=== PATIENT | male | born 1985 | race Caucasian/White ===

== ENCOUNTER → 2021-05-29 10:33 | Outpatient (BNVA) | payer BC, SELFPAY | PROVIDERS: Visit Provider Nurse Practitioner Family | DX: R10.9 Unspecified abdominal pain (principal) | CPT/HCPCS: 81000 ==

== ENCOUNTER 2021-05-31 10:43 | Emergency (ER) | payer BC, SELFPAY ==
[2021-05-31 11:23] VITALS: BP 135/90; PULSE 88; RESP 16; TEMP 36.8; O2SAT 98; BMI 24.3
--- NOTE | 2021-05-31 13:20 | W.ED.BACK ---
Documented by User: DENISE Sesay 05/31/21 15:17 HPI - Back Pain/Injury General: Chief Complaint: Back Pain/Injury Stated Complaint: sent by pcp: poss kidney stones/needs further eval Time Seen by Provider: 05/31/21 13:01 Source: patient Mode of arrival: ambulatory Limitations: no limitations History of Present Illness: HPI Narrative: Patient is a nice 36-year-old male who presents to ED today with a complaint of right flank pain. Patient states he was seen at a clinic 2 days ago and was told it could be a kidney stone. States he woke up around 0530am that day with fairly acute onset pain. Patient states he was found to have hematuria on that visit. Patient states over the past 2 days pain has not been improving. He has not had any episodes of vomiting. He does not describe any changes to bowel habits. He has noticed darker than normal urine but does not complain of dysuria, frequency, or urgency. He has no history of kidney stones. No injury or trauma to his back. No radicular symptoms. MD elicited complaint: back pain Onset (ago): day(s) Timing: constant Similar Symptoms Previously: No Quality: sharp Location: right flank Radiation: abdomen Exacerbating factors: none Relieving factors: none Associated symptoms: Reports abdominal pain; Deny chills, change in bowel habits, dysuria, fatigue, fever(s), urinary urgency or vomiting Work related injury: No Review of Systems Const: Denies: fever(s), chills, body aches, fatigue or malaise Card: Denies: chest pain Resp: Denies: dyspnea GI: Reports: abdominal pain; Denies: vomiting, diarrhea, change in bowel habits or change in stool character : Reports: flank pain; Denies: dysuria, urinary frequency, urinary urgency, urinary hesitancy, urinary dribbling, testicular pain or scrotal swelling Musc: Reports: back pain Skin/Breast: Denies: rash PFSH ED PFSH: Social History (Updated 05/29/21 @ 10:32 by Marcy John LPN) Smoking and tobacco status: current every day smoker (0.5 ppd) cigarettes Packs smoked per day: 0.5 Alcohol intake: current Alcohol intake frequency: holidays/special occasions only Physical Exam Const: COMMON NORMALS: average body habitus, patient oriented x3, no limitations, healthy appearing, alert and well nourished GENERAL APPEARANCE: cooperative and in distress (appears mildly uncomfortable ) Resp: COMMON NORMALS: normal respiratory effort and clear to auscultation bilaterally AUSCULTATION: clear to auscultation bilaterally Cardio: COMMON NORMALS: regular rate and regular rhythm RATE: regular rate RHYTHM: regular rhythm GI: COMMON NORMALS: Normal to inspection, nondistended, normoactive bowel sounds present, Soft to palpation, No hepatosplenomegaly present and no masses INSPECTION: Yes normal to inspection PALPATION: Yes Soft to palpation, Yes Tenderness to palpation present (GI) Details: RLQ and RUQ and Yes No hepatosplenomegaly present : BLADDER/KIDNEY EXAM: Yes CVA tenderness on the right Back/Pelvis: GENERAL BACK: Yes CVA tenderness THORACIC SPINE/UPPER BACK: Yes normal to inspection, Yes thoracic ROM normal and No thoracic spinal tenderness LUMBAR SPINE/LOWER BACK: Yes normal to inspection, Yes lumbar ROM normal and No lumbar spinal tenderness Extremity: COMMON NORMALS: normal to inspection, no calf tenderness and no pedal edema Neuro: COMMON NORMALS: patient oriented x3 SENSORIUM/ORIENTATION: Yes alert Skin: COMMON NORMALS: no rashes or lesions noted GENERAL SKIN EXAM: no rashes or lesions noted Course Vital Signs: Vital signs: Vital Signs Temperature 98.2 F 05/31/21 11:23 Pulse Rate 74 05/31/21 15:43 Respiratory Rate 18 05/31/21 15:43 Blood Pressure 131/92 05/31/21 15:43 Pulse Oximetry 98 05/31/21 11:23 MDM - Back Pain/Injury MDM Narrative: Medical decision making narrative: Patient's vital signs are stable. He has a mild white count of 14.7 but UA does not appear infected. CT scan shows a 6 mm calcification in his mid right ureter. When I measured stone it was roughly 3 to 4 mm. Patient's pain is controllable here. He feels stable going home. Will discharge with urine strainer and pain/nausea meds and Flomax and have case management set him up with Dr. Chaidez. Strict return to ED precautions given. Lab Data: Labs: Lab Results 05/31/21 05/31/21 05/31/21 13:51 13:51 14:41 WBC 14.7 10^3/uL H 10 ^3/uL (4.0-10.0) RBC 5.08 10^6/uL 10^6 /uL (4.1-5.3) Hgb 15.1 g/dL g/dL (11.7-16.6) Hct 43.2 % % (42.0-52.0) MCV 85.0 fl fl (80-94) MCH 29.7 pg pg (28.0-34.0) MCHC 35.0 g/dL g/dL (30.0-36.0) RDW 12.6 % % (12.1-15.1) Plt Count 313 10^3/cmm 10^3 /cmm (130-400) MPV 9.1 fL fL (7.4-10.4) Neut % (Auto) 71.3 % % Lymph % (Auto) 16.7 % % [place] % (Auto) 8.3 % % Eos % (Auto) 3.1 % % Baso % (Auto) 0.3 % % Neut # (Auto) 10.46 10^3/uL H 1 0^3/uL (1.8-7.7) Lymph # (Auto) 2.5 10^3/uL 10^3/ uL (0.8-4.8) [place] # (Auto) 1.2 10^3/uL H 10^ 3/uL (0.2-0.9) Eos # (Auto) 0.5 10^3/uL 10^3/ uL (0.0-0.8) Baso # (Auto) 0.1 10^3/uL 10^3/ uL (0.0-0.1) Nucleated RBC % (a uto) 0 % % Nucleated RBCs # 0.0 /100WBC /100W BC Sodium 136 mmol/L mmol/L (136-145) Potassium 4.4 mmol/L mmol/L (3.5-5.1) Chloride 100 mmol/L mmol/L (98-107) Carbon Dioxide 26 mmol/L mmol/L (22-29) Anion Gap 14.4 (5-19) BUN 18 mg/dL mg/dL (6-20) Creatinine 1.1 mg/dL mg/dL (0.7-1.2) GFR Calculation 74.9 mL/min L mL/ min (90-130) Glucose 88 mg/dL mg/dL (65-115) Calculated Osmolal ity 283 mOsm/kg L mOs m/kg (285-295) Calcium 9.1 mg/dL mg/dL (8.5-10.5) Total Bilirubin 0.2 mg/dL mg/dL (0.15-1.2) AST 22 U/L U/L (0-40) ALT 27 U/L U/L (0-41) Alkaline Phosphata se 111 IU/L IU/L (40-130) Total Protein 7.3 g/dL g/dL (6.6-8.7) Albumin 4.1 g/dL g/dL (3.5-5.2) Globulin 3.2 g/dL g/dL (1.3-4.6) Urine Color Yellow (Yellow) Urine Appearance Clear (CLEAR) Urine pH 5 (5-7) Ur Specific Gravit y 1.020 (1.005-1.030) Urine Protein Neg (Negative) Urine Glucose (UA) Norm (Normal) Urine Ketones Negative (Negative) Urine Blood Neg (Negative) Urine Nitrate Negative (Negative) Urine Bilirubin Neg (Negative) Urine Urobilinogen Norm mg/dL mg/dL (Negative) Ur Leukocyte Sade ase Negative (Negative) Imaging Data^: CT renal: Radiologist's impression: [address] [id number] Scan ReportSigned Patient: Miguel A Gonzalez #: [id number]: 1985Acct#:[id number]/Sex: 36 / MADM Date: 05/31/21Loc: [facility]/Bed:Attending Dr: Ordering Provider/Ordering MD: Naye Ellison Date of Service: 05/31/21 Procedure(s): CT kidney stone [id number] Accession Number(s): [id number] Report Number: [id number] WS: [id number] CT ABDOMEN AND PELVIS NONCONTRAST HISTORY: R flank pain, hematuria TECHNIQUE: Imaging performed through the abdomen and pelvis. Coronal and sagittal reformats are submitted. All CT scans at [facility] use at least one of these dose optimization techniques: automated exposure control; mA and/or kV adjustment per patient size (includes targeted exams where dose is matched to clinical indication); or iterative reconstruction. DLP: 1252.54 mGy.cm COMPARISON: None available. Lower thorax: Lung bases are clear. Normal heart. Small hiatal hernia. Liver: Normal size liver. No mass or bile duct dilatation. Gallbladder: Normal gallbladder. Pancreas: Normal size and attenuation. Normal pancreatic duct. No pancreatitis or mass. Spleen: Normal. Adrenal glands: Normal. No mass. Right kidney: Enlarged RIGHT kidney with mild perinephric stranding. Moderate hydronephrosis and hydroureter secondary to a 6 mm calcification in the mid ureter. Distal ureter is normal. No additional calcifications RIGHT kidney. Left kidney: Normal size kidney with no mass or hydronephrosis. Aorta: Mild atherosclerosis abdominal aorta with no aneurysm. No free fluid, intraperitoneal air or significant lymphadenopathy. GI tract: Normal appendix. No GI tract obstruction or diverticulosis. Abdominal wall: Negative. No hernia. Pelvis: Normal. Osseous structures: Unremarkable. CT/CT kidney stone [id number] IMPRESSION: 1. Mild RIGHT perinephric stranding and hydronephrosis secondary to a 6 mm calcification in the mid RIGHT ureter. 2. Normal appendix. 3. Small hiatal hernia. Dictated By:Anitra Scruggs DOSigned By:Anitra Scruggs DOSigned Date/Time:05/31/211425DD/ 23 Discharge Plan Discharge Patient Disposition: Home Clinical Impression: Calculus of right ureter Condition: Stable Prescriptions: New hydrocodone-acetaminophen 5-325 mg tablet 1 tab PO Q4H PRN (Reason: pain) Qty: 20 RF: 0 Zofran 4 mg tablet 4 mg PO Q6H PRN (Reason: nausea and vomiting) Qty: 14 RF: 0 Flomax 0.4 mg capsule 0.4 mg PO DAILY Qty: 10 RF: 0 Discharge Orders: Discharge ED (Routine); Ordered 05/31/21 Ordered By: Naye Ellison Referrals: Lemuel Chaidez MD [Physician] - Patient Instructions: Ureteral Stones (ED) Activity Restrictions/Additional Instructions: As we discussed you may take pain/nausea medications as needed. Take the Flomax as prescribed daily. Begin straining your urine and bring stone with you to your follow-up appointment with Dr. Chaidez. Case management should contact you shortly to set you up with this appointment. As we discussed you need to return to the emergency department for worsening or uncontrollable flank/back/abdominal pain, fevers greater than 100.4, repetitive episodes of vomiting, inability to urinate, or any other concerns you may have. I hope you begin to feel better soon. Coding Level of Care Code ED Aluminum Pool Installer for Chg Fwd Exam Comprehensive Documented by User: Yesi Erazo MD 05/31/21 23:17 HPI - Back Pain/Injury General: Chief Complaint: Back Pain/Injury Stated Complaint: sent by pcp: poss kidney stones/needs further eval Time Seen by Provider: 05/31/21 13:01 PFS ED PFSH: Social History (Updated 05/29/21 @ 10:32 by Marcy John LPN) Smoking and tobacco status: current every day smoker (0.5 ppd) cigarettes Packs smoked per day: 0.5 Alcohol intake: current Alcohol intake frequency: holidays/special occasions only Course Vital Signs: Vital signs: Vital Signs Temperature 98.2 F 05/31/21 11:23 Pulse Rate 74 05/31/21 15:43 Respiratory Rate 18 05/31/21 15:43 Blood Pressure 131/92 05/31/21 15:43 Pulse Oximetry 98 05/31/21 11:23 MDM - Back Pain/Injury Lab Data: Labs: Lab Results 05/31/21 05/31/21 05/31/21 13:51 13:51 14:41 WBC 14.7 10^3/uL H 10 ^3/uL (4.0-10.0) RBC 5.08 10^6/uL 10^6 /uL (4.1-5.3) Hgb 15.1 g/dL g/dL (11.7-16.6) Hct 43.2 % % (42.0-52.0) MCV 85.0 fl fl (80-94) MCH 29.7 pg pg (28.0-34.0) MCHC 35.0 g/dL g/dL (30.0-36.0) RDW 12.6 % % (12.1-15.1) Plt Count 313 10^3/cmm 10^3 /cmm (130-400) MPV 9.1 fL fL (7.4-10.4) Neut % (Auto) 71.3 % % Lymph % (Auto) 16.7 % % [place] % (Auto) 8.3 % % Eos % (Auto) 3.1 % % Baso % (Auto) 0.3 % % Neut # (Auto) 10.46 10^3/uL H 1 0^3/uL (1.8-7.7) Lymph # (Auto) 2.5 10^3/uL 10^3/ uL (0.8-4.8) [place] # (Auto) 1.2 10^3/uL H 10^ 3/uL (0.2-0.9) Eos # (Auto) 0.5 10^3/uL 10^3/ uL (0.0-0.8) Baso # (Auto) 0.1 10^3/uL 10^3/ uL (0.0-0.1) Nucleated RBC % (a uto) 0 % % Nucleated RBCs # 0.0 /100WBC /100W BC Sodium 136 mmol/L mmol/L (136-145) Potassium 4.4 mmol/L mmol/L (3.5-5.1) Chloride 100 mmol/L mmol/L (98-107) Carbon Dioxide 26 mmol/L mmol/L (22-29) Anion Gap 14.4 (5-19) BUN 18 mg/dL mg/dL (6-20) Creatinine 1.1 mg/dL mg/dL (0.7-1.2) GFR Calculation 74.9 mL/min L mL/ min (90-130) Glucose 88 mg/dL mg/dL (65-115) Calculated Osmolal ity 283 mOsm/kg L mOs m/kg (285-295) Calcium 9.1 mg/dL mg/dL (8.5-10.5) Total Bilirubin 0.2 mg/dL mg/dL (0.15-1.2) AST 22 U/L U/L (0-40) ALT 27 U/L U/L (0-41) Alkaline Phosphata se 111 IU/L IU/L (40-130) Total Protein 7.3 g/dL g/dL (6.6-8.7) Albumin 4.1 g/dL g/dL (3.5-5.2) Globulin 3.2 g/dL g/dL (1.3-4.6) Urine Color Yellow (Yellow) Urine Appearance Clear (CLEAR) Urine pH 5 (5-7) Ur Specific Gravit y 1.020 (1.005-1.030) Urine Protein Neg (Negative) Urine Glucose (UA) Norm (Normal) Urine Ketones Negative (Negative) Urine Blood Neg (Negative) Urine Nitrate Negative (Negative) Urine Bilirubin Neg (Negative) Urine Urobilinogen Norm mg/dL mg/dL (Negative) Ur Leukocyte Sade ase Negative (Negative) Discharge Plan Discharge Patient Disposition: Home Clinical Impression: Calculus of right ureter Condition: Stable Prescriptions: New hydrocodone-acetaminophen 5-325 mg tablet 1 tab PO Q4H PRN (Reason: pain) Qty: 20 RF: 0 Zofran 4 mg tablet 4 mg PO Q6H PRN (Reason: nausea and vomiting) Qty: 14 RF: 0 Flomax 0.4 mg capsule 0.4 mg PO DAILY Qty: 10 RF: 0 Discharge Orders: Discharge ED (Routine); Ordered 05/31/21 Ordered By: Naye Ellison Referrals: Lemuel Chaidez MD [Physician] - Patient Instructions: Ureteral Stones (ED) Activity Restrictions/Additional Instructions: As we discussed you may take pain/nausea medications as needed. Take the Flomax as prescribed daily. Begin straining your urine and bring stone with you to your follow-up appointment with Dr. Chaidez. Case management should contact you shortly to set you up with this appointment. As we discussed you need to return to the emergency department for worsening or uncontrollable flank/back/abdominal pain, fevers greater than 100.4, repetitive episodes of vomiting, inability to urinate, or any other concerns you may have. I hope you begin to feel better soon. Coding Level of Care Code ED Aluminum Pool Installer for Cirilo Chopra Exam Comprehensive
[2021-05-31] MEDS: sodium chloride 0.9% 1,000 ML 999 ML IV (13:58)
[2021-05-31] MEDS: ondansetron 2 mg/ML SDV 2 mL 4 MG IVP (14:00)
[2021-05-31 14:01] VITALS: RESP 18
[2021-05-31] MEDS: morphine 4 mg/mL SDV 1 mL IVP (14:01)
[2021-05-31 14:04] LABS: Basophils # 0.1 10^3/uL (0.0-0.1); Basophils % 0.3 %; Eosinophils # 0.5 10^3/uL (0.0-0.8); Eosinophils % 3.1 %; Hematocrit 43.2 % (42.0-52.0); Hemoglobin 15.1 g/dL (11.7-16.6); Lymphocytes # 2.5 10^3/uL (0.8-4.8); Lymphocytes % 16.7 %; Mean Corpuscular Hemoglobin 29.7 pg (28.0-34.0); Mean Platelet Volume 9.1 fL (7.4-10.4); Monocytes # 1.2 10^3/uL (0.2-0.9); Monocytes % 8.3 %; Neutrophils # 10.46 10^3/uL (1.8-7.7); Neutrophils % 71.3 %; Nucleated Red Blood Cells % 0 %; Platelet Count 313 10^3/cmm (130-400); Red Blood Count 5.08 10^6/uL (4.1-5.3); Red Cell Distribution Width 12.6 % (12.1-15.1); White Blood Count 14.7 10^3/uL (4.0-10.0)
--- NOTE | 2021-05-31 14:09 | CT_ITS ---
WS: [id number] CT ABDOMEN AND PELVIS NONCONTRAST HISTORY: R flank pain, hematuria TECHNIQUE: Imaging performed through the abdomen and pelvis. Coronal and sagittal reformats are submi tted. All CT scans at [facility] use at least one of these dose optimization techniques: auto mated exposure control; mA and/or kV adjustment per patient size (includes targeted exams where dose is matched to clinical indication); or iterative reconstruction. DLP: 1252.54 mGy.cm COMPARISON: None available. Lower thorax: Lung bases are clear. Normal heart. Small hiatal hernia. Liver: Normal size liver. No mass or bile duct dilatation. Gallbladder: Normal gallbladder. Pancreas: Normal size and attenuation. Normal pancreatic duct. No pancreatitis or mass. Spleen: Normal. Adrenal glands: Normal. No mass. Right kidney: Enlarged RIGHT kidney with mild perinephric stranding. Moderate hydronephrosis and hydr oureter secondary to a 6 mm calcification in the mid ureter. Distal ureter is normal. No additional c alcifications RIGHT kidney. Left kidney: Normal size kidney with no mass or hydronephrosis. Aorta: Mild atherosclerosis abdominal aorta with no aneurysm. No free fluid, intraperitoneal air or significant lymphadenopathy. GI tract: Normal appendix. No GI tract obstruction or diverticulosis. Abdominal wall: Negative. No hernia. Pelvis: Normal. Osseous structures: Unremarkable. CT/CT kidney stone [id number] IMPRESSION: 1. Mild RIGHT perinephric stranding and hydronephrosis secondary to a 6 mm cici cification in the mid RIGHT ureter. 2. Normal appendix. 3. Small hiatal hernia.
[2021-05-31 14:21] LABS: Alanine Aminotransferase 27 U/L (0-41); Albumin Level 4.1 g/dL (3.5-5.2); Alkaline Phosphatase 111 IU/L (40-130); Anion Gap 14.4 (5-19); Aspartate Amino Transferase 22 U/L (0-40); Blood Urea Nitrogen 18 mg/dL (6-20); Calcium 9.1 mg/dL (8.5-10.5); Carbon Dioxide 26 mmol/L (22-29); Chloride 100 mmol/L (98-107); Globulin 3.2 g/dL (1.3-4.6); Glomerular Filtration Rate 74.9 mL/min (90-130); Glucose 88 mg/dL (65-115); Osmolality Calculated 283 mOsm/kg (285-295); Potassium 4.4 mmol/L (3.5-5.1); Sodium 136 mmol/L (136-145); Total Bilirubin 0.2 mg/dL (0.15-1.2); Total Protein 7.3 g/dL (6.6-8.7)
[2021-05-31 14:47] LABS: Add Urine Microscopic? NO; Charge for UA Resulting for Rev
[2021-05-31 14:50] LABS: Bilirubin Urine Neg (Negative); Blood Urine Neg (Negative); Glucose Urine UA Norm (Normal); Ketones Urine Negative (Negative); Leukocyte Esterase Urine Negative (Negative); Nitrate Urine Negative (Negative); Protein Urine Neg (Negative); Urine Appearance Clear (CLEAR); Urine Color Yellow (Yellow); Urobilinogen Urine Norm (Negative); pH Urine 5 (5-7)
[2021-05-31] MEDS: ketorolac 30 mg/mL INJ IVP (15:00)
[2021-05-31 15:43] VITALS: BP 131/92; PULSE 74; RESP 18
--- NOTE | 2021-06-01 10:20 | DCPLANNER ---
customer services manager had message to schedule a follow up appointment for patient with Dr. Chaidez. customer services manager called the office of Dr. Chaidez, spoke with Shannon, gave clinic patients information. customer services manager was told that patients information would be printed and reviewed. Clinic will call patient with appointment information.
--- NOTE | 2021-06-06 15:52 | DCPLANNER ---
Patient had a follow up appointment scheduled for 06.04.[address] Chaidez - patient did attend appointment.
== END 2021-05-31 15:32 | disposition home or self-care (01) ==
PROVIDERS: Emergency Provider Physician Assistant; PCP Nurse Practitioner Family
DX: N20.1 Calculus of ureter (principal); F17.210 Nicotine dependence, cigarettes, uncomplicated
CPT/HCPCS: 74176; 80053; 81003; 85025; 96361; 96374; 96375; 99284; J1885; J2270; J2405; J7030

== ENCOUNTER 2021-06-04 09:45 | Outpatient (CLI) | payer BC, SELFPAY ==
--- NOTE | 2021-06-04 09:50 | XRR_ITS ---
PROCEDURE INFORMATION: Exam: XR Abdomen Exam date and time: 06/04/2021 9:50 AM Age: 36 years old Clinical indication: Condition or disease; Kidney or ureter condition; Calculus (stone) in kidney; Patient HX: Follow up RT side kidney stone; Additional info: Stones, kub ezio 06/04/21 @ 10:00 am appt to follow TECHNIQUE: Imaging protocol: XR of the abdomen. Views: Frontal supine view of the abdomen. 1 View. COMPARISON: CT kidney stone [id number] 05/31/2021 2:14 PM FINDINGS: Gastrointestinal tract: Normal. No bowel dilation. Organs: No definite urinary tract calculus. Small nonspecific calcification in the right pelvis. Bones/joints: No acute findings. XR/XR KUB [id number] IMPRESSION: No acute findings. Radiation Dose CTDIVOL = (mGy): DLP = (mGy-cm)
== END 2021-06-04 09:46 | disposition home or self-care (01) ==
PROVIDERS: PCP Nurse Practitioner Family; Visit Provider Urology
DX: N20.1 Calculus of ureter (principal)
CPT/HCPCS: 74018